=== PATIENT | male | born 1980 ===

== ENCOUNTER 2017-06-23 01:28 | Emergency (ER) | payer OTHER ==
[2017-06-23 01:51] VITALS: BP 125/85; PULSE 71; RESP 20; TEMP 98.2; O2SAT 100
--- NOTE | 2017-06-23 02:33 | C.PDOC ---
History Of Present Illness 36 yo male c/o right lateral malleolus area discomfort for 2 days. Patient does not know if it is his gout. States that he was playing cricket for 2 days. Patient is ambulating without difficulty. 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 Denies trauma, weakness, numbness, or any other complaints. Time Seen by Provider: 06/23/17 02:32 Chief Complaint (Nursing): Lower Extremity Problem/Injury History Per: Patient History/Exam Limitations: no limitations Onset/Duration Of Symptoms: Days Current Symptoms Are (Timing): Still Present Severity: Mild Pain Scale Rating Of: 3 Recent travel outside of the [place]: No Additional History Per: Patient - Ankle/Foot Description Of Injury: Other Alleviating Factor(s): Other (allopurinol) Past Medical History Reviewed: Historical Data, Nursing Documentation, Vital Signs Vital Signs: Last Vital Signs Temp 98.2 F 06/23/17 01:49 Pulse 71 06/23/17 01:49 Resp 20 06/23/17 01:49 BP 125/85 06/23/17 01:49 Pulse Ox 100 06/23/17 02:54 - Medical History PMH: Hypercholesterolemia Family History: States: Unknown Family Hx - Social History Hx Alcohol Use: No Hx Substance Use: No - Immunization History Hx Tetanus Toxoid Vaccination: No Hx Influenza Vaccination: No Hx Pneumococcal Vaccination: No Review Of Systems Constitutional: Negative for: Fever, Chills Musculoskeletal: Positive for: Foot Pain (Right malleolus discomfort) Skin: Negative for: Rash Neurological: Negative for: Weakness, Numbness Psych: Negative for: Anxiety Physical Exam - Physical Exam Appears: Non-toxic, No Acute Distress Skin: Warm, Dry Cardiovascular: Rhythm Regular Extremity: Normal ROM, Tenderness (Mild right lateral malleolus area tenderness) , No Pedal Edema, Capillary Refill (<2secs), No Other (No erythema) Extremity: Bilateral: Atraumatic, Normal Color And Temperature, Normal ROM Pulses: Left Dorsalis Pedis: Normal, Right Dorsalis Pedis: Normal Neurological/Psych: Oriented x3, Normal Speech, Normal Cognition Gait: Steady ED Course And Treatment O2 Sat by Pulse Oximetry: 100 (RA) Pulse Ox Interpretation: Normal Progress Note: splint applied. felt better after motrin Reevaluation Time: 03:10 Reassessment Condition: Improved Disposition Counseled Patient/Family Regarding: Studies Performed, Diagnosis, Need For Followup - Disposition Referrals: Eric Loja DO [Staff Provider] - Disposition: HOME/ ROUTINE Disposition Time: 02:33 Condition: FAIR Additional Instructions: Please use motrin for pain 800 mg every 8 hours Instructions: Arthralgia (ED) Forms: [employer] ([employer]) - Clinical Impression Clinical Impression: Arthralgia of ankle, left - Scribe Statement The provider has reviewed the documentation as recorded by the Scribnora resendiz All medical record entries made by the Agustinibnora were at my direction and personally dictated by me. I have reviewed the chart and agree that the record accurately reflects my personal performance of the history, physical exam, medical decision making, and the department course for this patient. I have also personally directed, reviewed, and agree with the discharge instructions and disposition.
== END 2017-06-23 03:15 | disposition home or self-care (01) ==
LOC: C.ER 01:28
DX: M25.571 Pain in right ankle and joints of right foot (principal)